=== PATIENT | female | born 1990 | race Caucasian/White ===

== ENCOUNTER 2017-12-25 18:06 | Emergency (ER) | payer BC ==
[~2017-12-25] VITALS: Ht 160 cm; Wt 108.0 kg
[2017-12-25 18:09] VITALS: Ht 160 cm; Wt 108.0 kg
[2017-12-25 19:57] VITALS: BP 124/71
== END 2017-12-25 19:57 | disposition home or self-care (01) ==
LOC: ED 18:06
DX: F41.9 Anxiety disorder, unspecified (principal); Z63.4 Disappearance and death of family member